=== PATIENT | male | born 1975 | race Two or more races ===

== ENCOUNTER 2020-04-15 20:31 | Emergency (ER) | payer OTHER ==
[~2020-04-15] VITALS: Ht 180.3 cm; Wt 68.0 kg
--- NOTE | 2020-04-15 21:06 | NUR ---
PATIENT CAME TO ER BED 1 C/O BURNING LEFT-SIDED CHEST PAIN THAT RADIATES TO THE LEFT SHOULDER AFTER DRINKING 2 SHOTS OF VODKA. AAOX4. PATIENT IS CONNECTED TO THE PRESSER MACHINE. BREATHING EVENLY AND UNLABORED ON ROOM AIR.
[2020-04-15 21:14] LABS: BASOPHILS % (AUTO) 0.3 % (0.0-2.0); EOSINOPHILS % (AUTO) 0.5 % (0.0-6.0); HEMATOCRIT 47 % (39-51); HEMOGLOBIN 16.5 g/dL (13.5-17.5); LYMPHOCYTES # (AUTO) 1.4 /CMM (0.8-4.8); LYMPHOCYTES % (AUTO) 14.8 % (20.0-44.0); MEAN CORPUSCULAR HGB CONC 35 g/dl (31.0-36.0); MEAN CORPUSCULAR VOLUME 84 fL (80-96); MONOCYTES # (AUTO) 0.4 /CMM (0.1-1.30); MONOCYTES % (AUTO) 4.8 % (2.0-12.0); NEUTROPHILS # (AUTO) 7.3 /CMM (1.8-8.9); NEUTROPHILS % (AUTO) 79.6 % (43.0-81.0); PLATELET COUNT (AUTO) 225 /CMM (150-450); WHITE BLOOD COUNT (AUTO) 9.1 K/uL (4.3-11.0)
[2020-04-15 21:40] LABS: CALCIUM, SERUM 8.7 mg/dL (8.5-10.1); CARBON DIOXIDE 30 mmol/L (21-32); CHLORIDE 102 mmol/L (98-107); CREATININE 1.3 mg/dL (0.6-1.3); GLUCOSE 138 mg/dL (74-106); POTASSIUM 3.4 mmol/L (3.5-5.1); SODIUM SERUM 140 mmol/L (136-145); UREA NITROGEN, BLOOD 15 mg/dL (7-18)
[2020-04-15] MEDS ORDERED: KETOROLAC TROMETHAMINE 15 MG/ML VIAL ONE (21:55)
[2020-04-15] MEDS ORDERED: POTASSIUM CHLORIDE 20 MEQ TAB.PRT.SR PO ONE ×2 (21:56→22:00)
[2020-04-15] MEDS ORDERED: KETOROLAC TROMETHAMINE INJ 30 MG/ML VIAL IV ONE (22:00)
--- NOTE | 2020-04-16 01:11 | NUR ---
pt is medically stable for D.C. resting in bed w. no c/o pain or discomfort. IV removed. Catheter intact and site benign. Pressure and 4x4 applied to site. No bleeding noted.Patient discharged to home in stable condition. Written and verbal after care instructions given. Patient verbalizes understanding of instruction.
[2020-04-16 01:13] VITALS: BP 139/86
== END 2020-04-16 01:14 | disposition home or self-care (01) ==
LOC: ER 20:39
DX: R07.89 Other chest pain (principal); F43.21 Adjustment disorder with depressed mood; F43.9 Reaction to severe stress, unspecified; E87.6 Hypokalemia; R51.9 Headache, unspecified
CPT/HCPCS: 36415; 71045; 80048; 84484 ×2; 85025; 93005 ×4; 96374; 99285; J1885

== ENCOUNTER 2020-07-28 15:14 | Emergency (ER) | payer OTHER ==
[~2020-07-28] VITALS: Ht 180.3 cm; Wt 79.8 kg
[2020-07-28 15:25] VITALS: BP 116/72
--- NOTE | 2020-07-28 15:41 | NUR ---
Patient came in to the er c/o covid + x 6 days, cough, fever, body aches and sob 99% on room air. Breathing evenly and unlabored. Kept comfortable, will cotninue to monitor accordingly.
[2020-07-28] MEDS ORDERED: AZIT250T PO (16:06)
[2020-07-28] MEDS ORDERED: BENZ-13 PO (16:07)
--- NOTE | 2020-07-28 16:17 | NUR ---
Patient discharged to home in stable condition. Written and verbal after care instructions given. Patient verbalizes understanding of instruction.
== END 2020-07-28 16:17 | disposition home or self-care (01) ==
LOC: ER 15:20
DX: U07.1 COVID-19 (principal); Z79.899 Other long term (current) drug therapy